=== PATIENT | female | born 1980 | race African-American/Black ===

== ENCOUNTER 2021-04-12 12:47 | Emergency (ER) | payer OTHER ==
--- NOTE | 2021-04-12 13:40 | RAD REPORT ---
EXAM DESCRIPTION: RAD - Chest Single View - 04/12/2021 1:21 pm CLINICAL HISTORY: Cough;SOB Chest pain. COMPARISON: No comparisons FINDINGS: Portable technique limits examination quality. The lungs are grossly clear. The heart is normal in size. No displaced fractures. IMPRESSION: No acute intrathoracic process suspected.
[2021-04-12] MEDS ORDERED: HYDROCODONE/CHLORPHEN 5 ML/OSYR ONE (15:37)
[2021-04-12] MEDS ORDERED: ONDANSETRON 4 MG (ODT) TAB ONE (15:37)
--- NOTE | 2021-04-12 15:55 | EDPHYS ---
Physician Documentation [facility] Name: Betty Mccray Age: 40 yrs Sex: Female : 1980 Arrival Date: 04/12/2021 Time: 12:52 Bed 13 Private MD: ED Physician Daniel Clements HPI: 04/12 14:43 This 40 yrs old Black Female presents to ER via Ambulatory with complaints of Cough, pm1 Shortness Of Breath, Urinary Problem. 14:43 The patient or guardian reports cough, with no sputum. Onset: The symptoms/episode pm1 began/occurred Cough present for approximately 6 weeks. However onset of body aches and feet pain today. Severity of symptoms: in the emergency department the symptoms are actually worse. Modifying factors: The symptoms are alleviated by nothing, the symptoms are aggravated by nothing. Associated signs and symptoms: Pertinent negatives: chest pain, fever, nausea, sore throat, vomiting. The patient has not experienced similar symptoms in the past. The patient has been recently seen by a physician: with similar presenting complaints, and apparently given a diagnosis of Bronchitis at [place] last week. 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 - Social history:: Smoking status: Patient denies any tobacco usage or history of. ROS: 14:43 Constitutional: Negative for fever, chills, and weight loss. pm1 14:43 Cardiovascular: Negative for chest pain, palpitations, and edema, MS/Extremity: Negative for injury and deformity. 14:43 Abdomen/GI: Negative for abdominal pain, nausea, vomiting, diarrhea, and constipation, Back: Negative for injury and pain, Skin: Negative for injury, rash, and discoloration. 14:43 Respiratory: Positive for cough, Negative for shortness of breath, sputum production. 14:43 Neuro: Positive for headache. 14:43 All other systems are negative. Exam: 14:43 Constitutional: This is a well developed, well nourished patient who is awake, alert, pm1 and in no acute distress. Head/Face: Normocephalic, atraumatic. 14:43 Skin: Warm, dry with normal turgor. Normal color with no rashes, no lesions, and no evidence of cellulitis. MS/ Extremity: Pulses equal, no cyanosis. Neurovascular intact. Full, normal range of motion. 14:43 ENT: Exam is negative for acute changes, Mouth: Lips: normal, moist, Oral mucosa: normal, pink and intact, moist, Posterior pharynx: no acute changes, peritonsillar mass, is not appreciated. 14:43 Cardiovascular: Rate: normal, Rhythm: regular, Pulses: no pulse deficits are appreciated. 14:43 Respiratory: Exam negative for acute changes, respiratory distress, shortness of breath. 14:43 Abdomen/GI: Exam negative for acute changes, Inspection: abdomen appears normal, Palpation: abdomen is soft and non-tender, in all quadrants. 14:43 Neuro: Exam negative for acute changes, Orientation: is normal, Mentation: is normal, Motor: is normal, moves all fours. Vital Signs: 12:57 BP 145 / 87; Pulse 98; Resp 18; Temp 97.6; Pulse Ox 100% ; Weight 125.19 kg; Height 5 ll1 ft. 5 in. (165.10 cm); Pain 8/10; 12:57 Body Mass Index 45.93 (125.19 kg, 165.10 cm) ll1 MDM: 13:06 Patient medically screened. pm1 15:52 Data reviewed: vital signs. Data interpreted: Pulse oximetry: on room air is 100 %. pm1 Interpretation: normal. Counseling: I had a detailed discussion with the patient and/or guardian regarding: the historical points, exam findings, and any diagnostic results supporting the discharge/admit diagnosis, lab results, radiology results, the need for outpatient follow up, to return to the emergency department if symptoms worsen or persist or if there are any questions or concerns that arise at home. 04/12 13:07 Order name: Flu; Complete Time: 14:43 pm1 04/12 13:07 Order name: Strep; Complete Time: 14:43 pm1 04/12 13:07 Order name: CXR XRAY; Complete Time: 13:52 pm1 04/12 13:39 Order name: SARS-COV-2 RT PCR; Complete Time: 15:52 EDMS 04/12 14:02 Order name: Throat Culture EDWV 04/12 13:07 Order name: Droplet/Contact Precautions; Complete Time: 13:16 pm1 04/12 13:07 Order name: Labs collected and sent; Complete Time: 13:16 pm1 04/12 13:07 Order name: O2 Per Protocol; Complete Time: 14:58 pm1 Administered Medications: 15:17 Drug: Tussionex Pennkinetic ER (chlorpheniramine-hydrocodone) Suspension 5 ml Route: PO;es2 15:18 Follow up: Response: No adverse reaction es2 15:17 Drug: Ondansetron 4 mg Route: PO; es2 15:18 Follow up: Response: No adverse reaction es2 Disposition: 19:09 Co-signature as Attending Physician, Daniel Clements MD I agree with the assessment and rn plan of care. Attestation: The patient's history, exam findings, diagnostics, and a summary of any interventions or procedures was reviewed in detail with Jerry Waldrop NP. Disposition Summary: 04/12/21 15:54 Discharge Ordered Location: Home pm1 Problem: new pm1 Symptoms: have improved pm1 Condition: Stable pm1 Diagnosis - Influenza B pm1 Followup: pm1 - With: Emergency Department - When: As needed - Reason: Worsening of condition Followup: pm1 - With: Private Physician - When: 2 - 3 days - Reason: Recheck today's complaints, Continuance of care, Re-evaluation by your physician Discharge Instructions: - Discharge Summary Sheet pm1 - Influenza, Adult pm1 Forms: - Work release form ss - Medication Reconciliation Form pm1 - Thank You Letter pm1 - Antibiotic Education pm1 - Prescription Opioid Use pm1 Prescriptions: - Tamiflu 75 mg Oral Capsule - take 1 tablet by ORAL route every 12 hours for 5 days; 10 tablet; Refills: 0, pm1 Product Selection Permitted - Tessalon Perles 100 mg Oral Capsule - take 1 capsule by ORAL route every 8 hours As needed; 15 capsule; Refills: 0, pm1 Product Selection Permitted Signatures: Dispatcher [employer] Daniel Carvalho MD MD rn Marinas, Patrick, NP ENTERPRISE SYSTEMS ARCHITECT pm1 Dai Blevins RN RN vg1 Astrid Coronado RN RN ll1 Angie Fatima RN RN es2 Corrections: (The following items were deleted from the chart) 13:39 13:07 CORONAVIRUS+LAB.BRZ ordered. EDMS EDMS
--- NOTE | 2021-04-12 15:55 | ER ---
Nurse's Notes [facility] Name: Betty Mccray Age: 40 yrs Sex: Female : 1980 Arrival Date: 04/12/2021 Time: 12:52 Bed 13 Private MD: Diagnosis: Influenza B Presentation: 04/12 12:57 Chief complaint: Patient states: Continuing cough since Mar.12. Diagnosed with ll1 bronchitis last week at [place]. 2 inhalers don't help a lot. No fever. Reports sore throat now. Coronavirus screen: Vaccine status: Patient reports receiving the 2nd dose of the covid vaccine. Client denies travel out of the [place] in the last 14 days. congestion, cough unrelated to allergies, diarrhea, difficulty breathing, shortness of breath, sore throat. Ebola Screen: Patient denies travel to an Ebola-affected area in the 21 days before illness onset. Initial Sepsis Screen: Does the patient meet any 2 criteria? HR > 90 bpm. No. Patient's initial sepsis screen is negative. Does the patient have a suspected source of infection? Yes: Productive cough/pneumonia. Risk Assessment: Do you want to hurt yourself or someone else? Patient reports no desire to harm self or others. Onset of symptoms was March 12, 2021. 12:57 Method Of Arrival: Ambulatory ll1 12:57 Acuity: GIOVANNI 3 ll1 Triage Assessment: 13:07 General: Appears well developed. General: Behavior is appropriate for age. Respiratory: es2 Onset: The symptoms/episode began/occurred gradually, the patient has moderate shortness of breath. Respiratory: Airway is patent Respiratory effort is even, Respiratory pattern is regular. 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 - Social history:: Smoking status: Patient denies any tobacco usage or history of. Screenin:07 Abuse screen: Denies threats or abuse. Denies injuries from another. Nutritional es2 screening: No deficits noted. Tuberculosis screening: No symptoms or risk factors identified. Fall Risk Mental Status- Oriented to own ability (0 pts). Assessment: 13:05 General: Appears well nourished, Behavior is cooperative, appropriate for age. Pain: es2 Complains of pain in throat Pain currently is 8 out of 10 on a pain scale. Neuro: Level of Consciousness is awake, alert, obeys commands, Oriented to person, place, time, situation, Appropriate for age Gait is steady, Speech is normal. Cardiovascular: Rhythm is sinus rhythm. Respiratory: Airway is patent Respiratory effort is even, Respiratory pattern is regular, Breath sounds are clear. GI: No signs and/or symptoms were reported involving the gastrointestinal system. : No signs and/or symptoms were reported regarding the genitourinary system. EENT: Reports pain in throat. Derm: No signs and/or symptoms reported regarding the dermatologic system. Musculoskeletal: No signs and/or symptoms reported regarding the musculoskeletal system. 15:09 Reassessment: Received VO from Palma COLEMAN to administer Zofran 4mg PO x1 and Tussionex vg1 5 mL PO x1. 16:07 Reassessment: Patient appears in no apparent distress at this time. No changes from tw2 previously documented assessment. Patient and/or family updated on plan of care and expected duration. Pain level reassessed. Patient is alert, oriented x 3, equal unlabored respirations, skin warm/dry/pink. Vital Signs: 12:57 BP 145 / 87; Pulse 98; Resp 18; Temp 97.6; Pulse Ox 100% ; Weight 125.19 kg; Height 5 ll1 ft. 5 in. (165.10 cm); Pain 8/10; 12:57 Body Mass Index 45.93 (125.19 kg, 165.10 cm) ll1 ED Course: 12:52 Patient arrived in ED. mr 12:59 Triage completed. ll1 13:01 Arm band placed on Patient placed in an exam room, on a stretcher. ll1 13:02 Angie Fatima, SO is Primary Nurse. es2 13:06 Jerry Waldrop NP is PHCP. pm1 13:06 Daniel Clements MD is Attending Physician. pm1 13:06 Patient has correct armband on for positive identification. Bed in low position. Call es2 light in reach. 13:07 No provider procedures requiring assistance completed. es2 13:16 Flu Sent. es2 13:16 Strep Sent. es2 13:20 CXR XRAY In Process Unspecified. EDMS 16:07 Patient did not have IV access during this emergency room visit. tw2 Administered Medications: 15:17 Drug: Tussionex Pennkinetic ER (chlorpheniramine-hydrocodone) Suspension 5 ml Route: PO;es2 15:18 Follow up: Response: No adverse reaction es2 15:17 Drug: Ondansetron 4 mg Route: PO; es2 15:18 Follow up: Response: No adverse reaction es2 Outcome: 15:54 Discharge ordered by MD. pm1 16:06 Discharged to home ambulatory. tw2 16:06 Condition: stable 16:06 Discharge instructions given to patient, Instructed on discharge instructions, follow up and referral plans. medication usage, Demonstrated understanding of instructions, follow-up care, medications, Prescriptions given X 2. 16:07 Patient left the ED. tw2 Signatures: Dispatcher [employer] EDMS Eliana Chavira Patrick, NP HEAD GREASE MAKER pm1 Chapis Blanc RN RN tw2 Dai Blevins RN RN vg1 Astrid Coronado RN RN ll1 Angie Fatima RN RN es2 Corrections: (The following items were deleted from the chart) 13:39 13:16 CORONAVIRUS+MR.LAB.PIO drawn and sent. es2 EDMS 15:10 15:09 Reassessment: Received VO from Palma COLEMAN to administer Zofran 4mg PO x1 and vg1 Tussonix 5 mL PO x1 vg1
[2021-04-12 16:12] VITALS: BP 145/87; TEMP 97.6; O2SAT 100
== END 2021-04-12 16:07 | disposition home or self-care (01) ==
LOC: ER 12:47
DX: J10.1 Influenza due to other identified influenza virus with other respiratory manifestations (principal); Z20.822 Contact with and (suspected) exposure to COVID-19
CPT/HCPCS: 87070; 87081; 87804 ×2; 71045; 99284; U0003

== ENCOUNTER 2021-11-14 10:07 | Emergency (ER) | payer OTHER ==
--- OUTSIDE RECORDS SUMMARY | 2021-11-14 10:10 | XMS REPORT | Continuity of Care Document ---
:[address] [facility] t Address [address] [place] [address] Care Team Providers Name Role Phone Lab, Fam Pob I Attending Clinician Unavailable Anene AIRCRAFT LOAD CONTROLLER Attending Clinician ANENE Attending Clinician Unavailable Doctor Unassigned, Name Attending Clinician Unavailable Payers Payer Name Policy Type Policy Number Effective Date Expiration Date S ource Problems Condition Condition Condition Status Onset Resolution Last Treating Co mments Source Name Details Category Date Date Treatment Clinician Date S/P S/P Disease Active 2014-07 [facility] abdominal abdominal 0-28 it[place] of [place] [facility] Status Status Disease Active 2014-07 [facility] post post 0-28 ity of surgical surgical 00:00: [place] removal of removal of 00 Me dical both both Branch fallopian fallopian tubes tubes Fibroids Fibroids Disease Active 2014-07 Unive rs 0-26 ity of 00:00: [place] 00 Medical Branch Abnormal Abnormal Disease Active 2014-07 Unive rs uterine uterine 0-26 ity of bleeding bleeding 00:00: [place] 00 Medical Branch Pelvic Pelvic Disease Active 2014-07 [facility] pain pain 0-26 ity of 00:00: [place] 00 Medical Branch Rheumatoid Rheumatoid Disease Active Overview : Univers arthritis arthritis 7-19 ICD10 ity of 00:00: Diagnosis [place] 00 Term Medical Value Analyst Branch Utility Obesity Obesity Disease Active Univers 7-19 ity of 00:00: [place] 00 Medical Branch Bipolar Bipolar Disease Active Univers disorder disorder 7-19 ity of 00:00: [place] 00 Medical Branch Osteoarthr Osteoarthr Disease Active Overview : Univers osis, osis, 7-19 ICD10 ity of unspecifie unspecifie 00:00: Diagnosis [place] d whether d whether 00 Term Medi edward generalize generalize Value Analyst Branch d or d or Utility localized, localized, involving involving lower leg lower leg Encounter Encounter Disease Active Uni vers for for 7-19 ity of long-term long-term 00:00: Melinda s (current) (current) 00 Medi edward use of use of Branch other other high-risk high-risk medication medication s s Depression Depression Problem Active C ommon with with Spirit anxiety anxiety [facility] Bipolar Bipolar Problem Active Common disorder disorder [facility] Chronic Chronic Problem Active Common pain pain [facility] syndrome syndrome [facility] High blood High blood Problem Active C ommon pressure pressure [facility] 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 lumbar [facility] spine spine [facility] Rheumatoid Rheumatoid Problem Active C ommon arthritis, arthritis, Sp stacey involving involving - [facility] I unspecifie unspecifie St d site, d site, [facility] unspecifie unspecifie Me dical d d Center rheumatoid rheumatoid factor factor presence presence Joint Joint Problem Active Common swelling swelling [facility] Hyperchole Hyperchole Problem Active C ommon sterolemia sterolemia Sp stacey [facility] Bilateral Bilateral Problem Active Com mon impacted impacted Spirit cerumen cerumen [facility] Depression Depression Problem Active C ommon [facility] Morbid Morbid Problem Active Common obesity obesity [facility] Polyarthra Polyarthra Problem Active C ommon lgia lgia [facility] Anxiety Anxiety Problem Active Common [facility] Osteoarthr Osteoarthr Problem Active C ommon itis of itis of Spirit both both - [facility] knees, knees, St unspecifie unspecifie Malgorzata kes d d Medical osteoarthr osteoarthr Ce nter itis type itis type BMI BMI Problem Active Common 50.0-59.9, 50.0-59.9, Sp stacey adult adult [facility] Impacted Impacted Problem Active Commo n cerumen of cerumen of Sp stacey right ear right ear - CH I [facility] Depression Depression Diagnosis Active Common screening screening Spir [facility] Encounter Encounter Diagnosis Active C ommon for for Spirit Medicare Medicare - [facility] annual annual [facility] exam exam [facility] Center Allergies, Adverse Reactions, Alerts Allergy Allergy Status Severity Reaction(s) Onset Inactive Treating Comm ents Source Name Type Date Date Clinician NO KNOWN Drug Active Univers ALLERGIE Class ity of S [facility] Social History Social Habit Start Date Stop Date Quantity Comments Source Sex Assigned At [facility] y [facility] Medical Branch Alcohol intake 2016-11-16 2016-11-16 [facility] 00:00:00 00:00:00 Medical Branch Smoking Status Start Date Stop Date Source Never smoker [facility] Medications Ordered Filled Start Stop Current Ordering Indication Dosage Frequency Signature Comments Components Source Medication Medication Date Date Medication? Clinician (SIG) Name Name cyclobenzap Yes 5mg Take 1 Univ ers rine 5 mg 5-15 tablet by ity o f tablet 00:00: mouth 3 (three) Medical times [place] daily as needed for Muscle Spasms for up to 20 doses. cyclobenzap Yes 5mg Take 1 Univ ers rine 5 mg 5-15 tablet by ity o f tablet 00:00: mouth 3 00 (three) Medical times [place] daily as needed for Muscle Spasms for up to 20 doses. FLUoxetine Yes 20mg Take 20 mg U nivers (PROZAC) 20 6-14 by mouth ity of mg capsule 21:03: daily. [address] meloxicam Yes 15mg Take 15 mg Un romel (MOBIC) 15 6-14 by mouth ity o f mg tablet 21:03: daily. [address] FLUoxetine Yes 20mg Take 20 mg U nivers (PROZAC) 20 6-14 by mouth ity of mg capsule 21:03: daily. [address] meloxicam Yes 15mg Take 15 mg Un romel (MOBIC) 15 6-14 by mouth ity o f mg tablet 21:03: daily. [address] hydrochloro 2014-07 Yes 12.5mg Take 12.5 Univers thiazide 0-29 mg by ity of (ESIDRIX) 18:05: mouth [place] 12.5 mg 40 daily. Medical capsule Branch hydroxychlo 2014-07 Yes 400mg Take 400 U nivers roquine 0-29 mg by ity of (PLAQUENIL) 18:05: mouth [place] 200 mg 40 daily. Medical tablet Branch leflunomide 2014-07 Yes 20mg Take 20 mg Univers (ARAVA) 20 0-29 by mouth ity o f mg tablet 18:05: daily. [place] [address] Medical Branch hydrochloro 2014-07 Yes 12.5mg Take 12.5 Univers thiazide 0-29 mg by ity of (ESIDRIX) 18:05: mouth [place] 12.5 mg 40 daily. Medical capsule Branch hydroxychlo 2014-07 Yes 400mg Take 400 U nivers roquine 0-29 mg by ity of (PLAQUENIL) 18:05: mouth [place] 200 mg 40 daily. Medical tablet Branch leflunomide 2014-07 Yes 20mg Take 20 mg Univers (ARAVA) 20 0-29 by mouth ity o f mg tablet 18:05: daily. [address] Branch HYDROcodone 2014-07 Yes 1{tbl} Take 1 Tab Univers -acetaminop 0-29 by mouth ity of hen (NORCO) 00:00: every 6 [place] as 10-325 mg 00 (six) Medical tablet hours as Branch needed for Pain (scale 4-6) or Pain (scale 7-10). HYDROcodone 2014-07 Yes 1{tbl} Take 1 Tab Univers -acetaminop 0-29 by mouth ity of hen (NORCO) 00:00: every 6 [place] as 10-325 mg 00 (six) Medical tablet hours as Branch needed for Pain (scale 4-6) or Pain (scale 7-10). PredniSONE PredniSONE Yes Priscilla 1 tablet Common Millender [facility] Plaquenil Plaquenil Yes Priscilla as Comm on Millender directed [facility] Leflunomide Leflunomide Yes Priscilla 1 tablet Common Millender [facility] Meloxicam Meloxicam Yes Priscilla 1 tablet Common Millender [facility] Invega Invega Yes Priscilla 1 tablet Common Millender in the Spirit morning [facility] Hydrocodone Hydrocodone Yes Priscilla not Common -Acetaminop -Acetaminop Millender defined Spirit hen hen [facility] Prozac Prozac Yes Priscilla 1 capsule Commo n Millender [facility] Orencia Orencia Yes Priscilla 250 Common Millender mg>>>as Spirit directed [facility] Procedures This patient has no known procedures. Encounters Start End Encounter Admission Attending Care Care Encounter Source Date/Time Date/Time Type Type Clinicians Facility Department ID 2020-01-15 2020-01-15 Laboratory Lab, Adc Fam Pob I [facility] [id number]. [id number] Univers 09:46:42 10:06:42 Only Danilo López [id number] ity of [place] [id number] [place] as Professio [id number] [address] Office [address] 2020-01-15 2020-01-15 Outpatient R DAX [facility] [id number] Univers 10:00:00 10:00:00 DANILO ity [facility] 2020-01-15 2020-01-15 Letter Doctor PAT [id number] [place] [address] 00:00:00 00:00:00 (Out) Unassigned, KELLY [id number] ity of [place] [facility] [id number] Lazarus as [id number] [address] 2019-03-08 2019-03-08 [facility] [id number] Common 10:00:00 10:00:[address] [facility] [address] [facility] 2019-02-20 2019-02-20 [facility] [id number] Common 13:54:00 13:54:[address] [facility] [address] [facility] 2019-02-20 2019-02-20 [facility] [id number] Common 10:00:00 10:00:00 [facility] [address] [facility] 2019-02-14 2019-02-14 [facility] [id number] Common 19:48:00 19:48:00 [facility] [address] [facility] 2019-02-14 2019-02-14 [facility] [id number] Common 09:00:00 09:00:00 t [facility] [address] [facility] [address] [facility] Results This patient has no known results.
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
[2021-11-14 11:39] VITALS: BP 145/86; TEMP 98.1; O2SAT 100
== END 2021-11-14 11:23 | disposition home or self-care (01) ==
LOC: ER 10:07
DX: S29.012A Strain of muscle and tendon of back wall of thorax, initial encounter (principal); S80.02XA Contusion of left knee, initial encounter; V49.49XA Driver injured in collision with other motor vehicles in traffic accident, initial encounter; I10 Essential (primary) hypertension; F31.9 Bipolar disorder, unspecified
CPT/HCPCS: 99283